=== PATIENT | female | born 1990 | race American Indian/Alaskan Native ===

== ENCOUNTER 2020-01-07 16:06 | Emergency (ER) | payer SELFPAY ==
[2020-01-07] MEDS ORDERED: ACETAMINOPHEN 325 MG TAB PO ONE (16:53)
[2020-01-07] MEDS ORDERED: IBUPROFEN 600 MG TAB PO ONE (16:53)
--- NOTE | 2020-01-07 17:26 | XRay Report ---
RIGHT HAND 4 VIEW(S) INDICATION / CLINICAL INFORMATION: fall outstretched hand, ttp to pinky metacarpal COMPARISON: None available. FINDINGS: BONES / JOINT(S): Slightly impacted fracture of the neck of the little finger metacarpal with mild pa lmar and radial angulation of the distal fracture fragment. No other fracture noted. No significant a rthritis. SOFT TISSUES: Mild soft tissue swelling adjacent to the fracture. ADDITIONAL FINDINGS: None. Signer Name: Lorraine Sung MD Signed: 01/07/2020 5:21 PM Workstation Name: [id number]
--- NOTE | 2020-01-07 17:43 | Emergency Department Report ---
ED Upper Extremity Inj HPI - General Chief Complaint: Fall Stated Complaint: BACK PAIN Time Seen by Provider: 01/07/20 16:46 Source: patient Mode of arrival: Ambulatory Limitations: No Limitations - History of Present Illness Initial Comments: Patient is a 29-year-old female who presents emergency room with complaints of a right hand injury that occurred yesterday. Patient states that she fell yesterday on the concrete. She states that she accidentally tripped over something and she fell onto an outstretched hand. She has associated right hand pain and swelling. She is right-hand dominant. She denies any injury in the past. She denies any numbness or weakness. Past medical history of hypertension. She states she did not take her blood pressure medication today but states she does have it. She has an allergy to penicillin. Last menstrual cycle 12/08/2019. - Related Data Previous Rx's Medication Instructions Recorded Last Taken Type HYDROcodone/APAP 5-325 [[place] 1 each PO Q6HR PRN #12 tablet 01/07/20 Unknown Rx 5/325] Allergies Allergy/AdvReac Type Severity Reaction Status Date / Time Penicillins Allergy Rash Verified 01/07/20 16:20 ED Review of Systems ROS: Stated complaint: BACK PAIN Other details as noted in HPI Comment: All other systems reviewed and negative ED Past Medical Hx - Past Medical History Previous Medical History?: Yes Hx Hypertension: Yes - Surgical History Past Surgical History?: No - Social History Smoking Status: Never Smoker Substance Use Type: Alcohol - Medications Home Medications: Home Medications Medication Instructions Recorded Confirmed Last Taken Type HYDROcodone/APAP 5-325 [[place] 1 each PO Q6HR PRN #12 tablet 01/07/20 Unknown Rx 5/325] ED Physical Exam - General Limitations: No Limitations General appearance: alert, in no apparent distress - Head Head exam: Present: atraumatic, normocephalic - Eye Eye exam: Present: normal appearance - ENT ENT exam: Present: mucous membranes moist - Extremities Exam Extremities exam: Present: other (ttp and edema present to the right pinky metacarpal, ecchymosis is present, decreased ROM of the right pinky secondary to pain she is still able to flex and extend, no ttp to the other digits, no wrist ttp, no snuffbox ttp, neurovascularly intact) - Neurological Exam Neurological exam: Present: alert, oriented X3 - Psychiatric Psychiatric exam: Present: normal affect, normal mood - Skin Skin exam: Present: warm, dry ED Course Vital Signs 01/07/20 16:17 Temperature 97.8 F Pulse Rate 98 H Respiratory 20 Rate Blood Pressure 140/97 O2 Sat by Pulse 100 Oximetry ED Medical Decision Making - Radiology Data Radiology results: report reviewed cc: LAUREN FOLWER Fluoro Time In Minutes: RIGHT HAND 4 VIEW(S) INDICATION / CLINICAL INFORMATION: fall outstretched hand, ttp to pinky metacarpal COMPARISON: None available. FINDINGS: BONES / JOINT(S): Slightly impacted fracture of the neck of the little finger metacarpal with mild palmar and radial angulation of the distal fracture fragment. No other fracture noted. No significant arthritis. SOFT TISSUES: Mild soft tissue swelling adjacent to the fracture. ADDITIONAL FINDINGS: None. Signer Name: Lorraine Sung MD Signed: 01/07/2020 5:21 PM Workstation Name: [id number] Transcribed By: DT Dictated By: Alverto Sung MD Electronically Authenticated By: Alverto Sung MD Signed Date/Time: 01/07/201720 DD/ 19 TD/TT: - Medical Decision Making Patient is a 29-year-old female who presents emergency room with complaints of a right hand injury that occurred yesterday. Patient states that she fell yesterday on the concrete. She states that she accidentally tripped over something and she fell onto an outstretched hand. She has associated right hand pain and swelling. She is right-hand dominant. She denies any injury in the past. She denies any numbness or weakness. Past medical history of hypertension. She states she did not take her blood pressure medication today but states she does have it. She has an allergy to penicillin. Last menstrual cycle 12/08/2019. Vitals are stable. On exam: ttp and edema present to the right pinky metacarpal, ecchymosis is present, decreased ROM of the right pinky secondary to pain she is still able to flex and extend, no ttp to the other digits, no wrist ttp, no snuffbox ttp, neurovascularly intact. Patient states that she did drive herself to the emergency department, patient was given Tylenol and ibuprofen for pain control. XR hand: Slightly impacted fracture of the neck of the little finger metacarpal with mild palmar and radial angulation of the distal fracture fragment. No other fracture noted. No significant arthritis. SOFT TISSUES: Mild soft tissue swelling adjacent to the fracture. ADDITIONAL FINDINGS: None. given prescription for norco. Patient placed in ulnar gutter splint by EMT and remained neurovascularly intact. advised pt Please take medication as prescribed only as needed. Do not drive or operate heavy machinery while taking pain medication. Please do not remove splint. Please follow-up with an orthopedic doctor. It is very important that you follow-up. Return to emergency room for any new or worsening symptoms. - Differential Diagnosis strain, sprain, fx, dislocation Critical care attestation.: If time is entered above; I have spent that time in minutes in the direct care of this critically ill patient, excluding procedure time. ED Disposition Clinical Impression: Boxers fracture Qualifiers: Encounter type: initial encounter Fracture type: closed Qualified Code(s): S62.339A - Displaced fracture of neck of unspecified metacarpal bone, initial encounter for closed fracture Disposition: TO HOME OR SELFCARE Is pt being admited?: No Does the pt Need Aspirin: No Condition: Stable Instructions: Boxer Fracture (ED) Additional Instructions: Please take medication as prescribed only as needed. Do not drive or operate heavy machinery while taking pain medication. Please do not remove splint. Please follow-up with an orthopedic doctor. It is very important that you follow-up. Return to emergency room for any new or worsening symptoms. Prescriptions: HYDROcodone/APAP 5-325 [[place] 5/325] 1 each PO Q6HR PRN #12 tablet PRN Reason: Pain , Severe (7-10) Referrals: MARY PORTILLO MD [Staff Physician] - 2-3 Days [facility] [Provider Group] - 2-3 Days Forms: Work/School Release Form(ED) Time of Disposition: 17:44 Print Language: BHUTANESE
[2020-01-09 12:44] VITALS: BP 140/97
== END 2020-01-07 18:18 | disposition home or self-care (01) ==
LOC: ED 16:06
DX: S62.336A Displaced fracture of neck of fifth metacarpal bone, right hand, initial encounter for closed fracture (principal); I10 Essential (primary) hypertension; Z79.899 Other long term (current) drug therapy; Z88.0 Allergy status to penicillin; W01.198A Fall on same level from slipping, tripping and stumbling with subsequent striking against other object, initial encounter; Y93.89 Activity, other specified; Y92.89 Other specified places as the place of occurrence of the external cause; Y99.8 Other external cause status